=== PATIENT | male | born 1965 | race African-American/Black ===

== ENCOUNTER → 2017-05-15 | Outpatient (CLI) | payer OTHER | END | disposition home or self-care (01) | LOC: KCIC CT 12:05 | DX: M27.40 Unspecified cyst of jaw (principal); R51 Headache; R09.81 Nasal congestion | CPT/HCPCS: 70486 ==

== ENCOUNTER → 2017-08-17 | Outpatient (CLI) | payer OTHER | END | disposition home or self-care (01) | LOC: ECHO 09:03 | DX: K21.9 Gastro-esophageal reflux disease without esophagitis (principal); I08.1 Rheumatic disorders of both mitral and tricuspid valves | CPT/HCPCS: 78452; 93017; 93306; 96374; 96376; A9500 ==

== ENCOUNTER → 2018-08-05 | Outpatient (CLI) | payer OTHER ==
--- NOTE | 2018-08-05 11:31 | KCIC ---
CHEST PA LATERAL History: Dyspnea Comparison: None. Findings: The cardiomediastinal silhouette is normal. Pulmonary vasculature is normal. The lungs are clear. No pleural effusion or pneumothorax is seen. There is no acute bone abnormality. IMPRESSION: No acute cardiopulmonary process. Electronically signed by: Kahlil Zambrano MD (08/05/2018 11:28 AM) [facility]
== END | disposition home or self-care (01) ==
LOC: KCIC 09:49
PROVIDERS: ATTEND Family Medicine
DX: R06.00 Dyspnea, unspecified (principal)
CPT/HCPCS: 71046

== ENCOUNTER → 2019-07-29 | Outpatient (CLI) | payer OTHER ==
--- NOTE | 2019-07-29 11:36 | KCIC ---
PROCEDURE: LUMBAR SPINE MIN 4V, HIP RIGHT 2V WITH PELVIS, SHOULDER 2+V RIGHT STUDY DATE: 07/29/2019 CLINICAL INDICATION / HISTORY: Chronic right shoulder pain. TECHNIQUE: AP internal and external rotation views with a Y- view were obtained. COMPARISON: No relevant comparisons currently available FINDINGS: No fracture, dislocation or bone destruction is identified. There are no degenerative changes at the right AC joint. No calcifications are seen in relation to the rotator cuff insertion. IMPRESSION: No acute osseous abnormality in the right shoulder. PROCEDURE: LUMBAR SPINE MIN 4V, HIP RIGHT 2V WITH PELVIS, SHOULDER 2+V RIGHT STUDY DATE: 07/29/2019 CLINICAL INDICATION / HISTORY: Chronic low back pain and right hip pain.. TECHNIQUE: AP lateral and bilateral oblique views as well as a coned-down lateral view of the lumbar spine in the upright position were obtained. COMPARISON: None FINDINGS: Five lumbar segments are identified. There is minimal rightward scoliotic curvature at L2-L3 apex with no listhesis identified. Lumbar vertebral bodies are otherwise normal in height and alignment. Disc height is minimally narrowed at L3-L4 and at L2-L3 to the lesser extent.. Pedicles are intact. IMPRESSION: Mild disc degenerative change. This is most apparent at L2-L3 and at L3-L4. No acute or aggressive osseous lesions noted. PROCEDURE: LUMBAR SPINE MIN 4V, HIP RIGHT 2V WITH PELVIS, SHOULDER 2+V RIGHT STUDY DATE: 07/29/2019 CLINICAL INDICATION / HISTORY: Right hip pain. TECHNIQUE: Three views of the right hip were obtained. COMPARISON: None FINDINGS: The osseous structures are normally mineralized. There is normal bony alignment present with the femoral heads well-seated within the acetabuli. There is no evidence of acute fracture or dislocation identified. The overlying soft tissues are grossly unremarkable. IMPRESSION: Unremarkable examination of the right hip. Electronically signed by: Otis Morton MD (07/29/2019 11:34 AM) [id number]
== END | disposition home or self-care (01) ==
LOC: KCIC 10:01
PROVIDERS: ATTEND Family Medicine
DX: M47.816 Spondylosis without myelopathy or radiculopathy, lumbar region (principal); M25.551 Pain in right hip; M25.511 Pain in right shoulder; G89.29 Other chronic pain
CPT/HCPCS: 72110; 73030; 73502

== ENCOUNTER → 2020-06-15 | Outpatient (CLI) | payer OTHER ==
--- NOTE | 2020-06-15 15:22 | KCIC ---
EXAM: Lumbar spine MRI without contrast. HISTORY: Lower back pain. TECHNIQUE: Multiplanar, multisequence magnetic resonance imaging of the lumbar spine was performed wi thout contrast. COMPARISON: None. FINDINGS: There is mild lumbar scoliosis. There is minimal retrolisthesis of L2 on L3 and L3 on L4. T here is multilevel endplate remodeling. There is disc desiccation and slight disc space narrowing pre dominantly at L2-L3 and L3-L4. There is also disc desiccation at L5-S1. There is preservation of the disc space at L4-L5. There is a Tarlov cyst within the sacral canal at S2 measuring 1.7 cm. The conus terminates at L1. There is no fracture or suspicious osseous lesion. There are few small osseous hem angiomas. At L1-L2, there is mild lateral facet arthropathy. There is no stenosis. At L2-L3, there is a disc bulge and endplate osteophytosis. There is mild left facet arthropathy. The re is mild bilateral foraminal stenosis with abutment the exiting L2 nerve roots. There is minimal ce ntral canal stenosis. At L3-L4, there is a broad-based right paracentral to foraminal disc protrusion and left foraminal to extra foraminal disc protrusion superimposed on a disc bulge and endplate osteophytosis. There is mi ld left facet arthropathy. There is mild right and moderate left foraminal stenosis with abutment the exiting left greater than right L3 nerve roots. There is mild central canal stenosis. At L4-L5, there is no stenosis. At L5-S1, there is a disc bulge and endplate remodeling. There is no stenosis. IMPRESSION: 1. Multilevel degenerative change involving the lumbar spine, described in detail above. This is asso ciated with mild bilateral foraminal and minimal central canal stenosis at L2-L3 and mild right and m oderate left foraminal and mild central canal stenosis at L3-L4. 2. Mild scoliosis. Electronically signed by: Mayela Hughes MD (06/15/2020 3:19 PM) [id number]
== END ==
LOC: KCIC MRI 14:31
PROVIDERS: ATTEND Nurse Practitioner Gerontology
DX: M47.816 Spondylosis without myelopathy or radiculopathy, lumbar region (principal); M51.26 Other intervertebral disc displacement, lumbar region; M48.061 Spinal stenosis, lumbar region without neurogenic claudication; M41.86 Other forms of scoliosis, lumbar region
CPT/HCPCS: 72148

== ENCOUNTER → 2021-03-19 | Outpatient (CLI) | payer OTHER ==
--- NOTE | 2021-03-19 11:18 | KCIC ---
EXAM: Chest, 2 views. HISTORY: Reflux. COMPARISON: 08/05/2018 FINDINGS: 2 views of the chest are obtained. There is no infiltrate, pleural effusion or pneumothorax . The heart is normal in size. IMPRESSION: No acute pulmonary finding. Electronically signed by: Mayela Hughes MD (03/19/2021 11:16 AM) [id number]
== END ==
LOC: KCIC 10:48
PROVIDERS: ATTEND Nurse Practitioner
DX: K21.9 Gastro-esophageal reflux disease without esophagitis (principal); R07.89 Other chest pain
CPT/HCPCS: 71046